=== PATIENT | male | born 1945 | race Caucasian/White ===

== ENCOUNTER → 2020-10-31 | Outpatient (CLI) | payer MEDICARE, OTHER ==
[~2020-10-31] MED LIST: ATEN100T PO; DOXA8TAB63 PO; DULA1.5P INJ; GLIP5TAB22 PO; METF10007 PO
[2020-10-31 15:10] LABS: MICROSCOPIC NOT IND
[2020-10-31 15:21] LABS: ALBUMIN 4.6 g/dL (3.4-5.0); ANION GAP 6 mmol/L (5-15); BASOPHILS % (AUTO) 1 % (0-1); CALCIUM 9.5 mg/dL (8.5-10.1); CHLORIDE 104 mmol/L (98-107); EOSINOPHILS % (AUTO) 2 % (1-7); LYMPHOCYTES % (AUTO) 22 % (22-44); MEAN CORPUSCULAR HGB CONC 34.9 g/dL (33.2-36.2); MEAN PLATELET VOLUME 7.2 fL (7.4-10.4); MONOCYTES % (AUTO) 5 % (2-9); NEUTROPHILS % (AUTO) 70 % (42-75); PLATELET COUNT 146 x10^3/uL (130-400); RED BLOOD COUNT 4.63 x10^6/uL (4.38-5.82); RED CELL DISTRIBUTION WIDTH 15.7 % (9.4-14.8)
[2020-10-31 15:26] LABS: ALANINE AMINOTRANSFERASE 18 U/L (12-78); ALKALINE PHOSPHATASE 60 U/L (45-117); BILIRUBIN,TOTAL 0.9 mg/dL (0.2-1.0); CREATININE 0.81 mg/dL (0.7-1.3); TOTAL PROTEIN 7.9 g/dL (6.4-8.2)
[2020-10-31 15:27] LABS: MD NO
== END | disposition home or self-care (01) ==
LOC: STAR 13:32
PROVIDERS: ATTEND Urology
DX: Z01.818 Encounter for other preprocedural examination (principal); N20.0 Calculus of kidney; I44.0 Atrioventricular block, first degree; I45.10 Unspecified right bundle-branch block; Z20.822 Contact with and (suspected) exposure to COVID-19
CPT/HCPCS: 36415; 80053; 81003; 85025; 87086; 93005; U0003

== ENCOUNTER → 2020-11-05 | Outpatient (CLI) | payer MEDICARE, OTHER | END | disposition home or self-care (01) | LOC: RAD 12:20 | PROVIDERS: ATTEND Urology | DX: M16.0 Bilateral primary osteoarthritis of hip (principal); N20.0 Calculus of kidney | CPT/HCPCS: 74018 ==

== ENCOUNTER 2020-11-06 07:26 | Day surgery (SDC) | payer MEDICARE, OTHER ==
[~2020-11-06] VITALS: Ht 180.3 cm; Wt 84.9 kg
[2020-11-06] MEDS ORDERED: CHLORHEXIDINE 15 ML UDC ONE (08:27)
[2020-11-06] MEDS ORDERED: LACTATED RINGERS 1,000 ML IV SCH (08:30)
[2020-11-06] MEDS ORDERED: CHLORHEXIDINE 15 ML UDC PO ONE (08:30)
[2020-11-06] MEDS ORDERED: MEPERIDINE/PF 25MG/0.5ML IVPush PRN (09:00)
[2020-11-06] MEDS ORDERED: DIPHENHYDRAMINE 50 MG/ML, 1ML IVPush PRN (09:00)
[2020-11-06] MEDS ORDERED: PROMETHAZINE 25 MG/ML, 1ML IVPush PRN (09:00)
[2020-11-06] MEDS ORDERED: HYDROmorphone 1 MG/ML, 1ML INJ IVPush PRN (09:00)
[2020-11-06] MEDS ORDERED: HALOPERIDOL 5 MG/ML IV PRN (09:00)
[2020-11-06] MEDS ORDERED: FENTANYL PF 100 MCG/2ML IV PRN (09:00)
[2020-11-06] MEDS ORDERED: FENTANYL PF 100 MCG/2ML ONE (09:29)
[2020-11-06] MEDS ORDERED: DEXAMETHASONE 4 MG/ML, 1ML ONE (10:03)
[2020-11-06] MEDS ORDERED: PROPOFOL 10 MG/ML, 20ML ONE (10:03)
[2020-11-06] MEDS ORDERED: CEFAZOLIN 1,000 MG ONE (10:03)
[2020-11-06] MEDS ORDERED: ONDANSETRON 2MG/ML, 2ML ONE (10:03)
[2020-11-06] MEDS: OXYcodone 5 MG/5 ML ORAL.SOL UDC PO PRN ×2 (13:06→14:23)
== END 2020-11-06 14:40 | disposition home or self-care (01) ==
LOC: OUT 07:26
PROVIDERS: ATTEND Urology
DX: N20.0 Calculus of kidney (principal); I10 Essential (primary) hypertension; E11.9 Type 2 diabetes mellitus without complications; I25.10 Atherosclerotic heart disease of native coronary artery without angina pectoris; N40.1 Benign prostatic hyperplasia with lower urinary tract symptoms; Z79.84 Long term (current) use of oral hypoglycemic drugs; Z79.899 Other long term (current) drug therapy; Z98.890 Other specified postprocedural states
CPT/HCPCS: 52356; 74018; 82962; 88300; C1769; C2617; J0690; J1100; J2405; J2704; J3010; J7120; 76000; 82360